=== PATIENT | female | born 1945 | race Caucasian/White ===

== ENCOUNTER 2020-11-12 10:16 | Inpatient (IN) | payer BC, MEDICARE, OTHER ==
[2020-11-12] MEDS ORDERED: Ondansetron 4 MG/2 ML SDV IVPUSH ONE (10:55)
[2020-11-12] MEDS ORDERED: Sodium Chloride 0.9% 1,000 ML IV SCH ×3 (11:00→16:00)
--- NOTE | 2020-11-12 13:00 | CT ---
Abdomen Pelvis wo Cont CLINICAL HISTORY: Vomiting and severe diarrhea COMPARISON: None. TECHNIQUE: Axial tomographic images are obtained from the dome of the diaphragm to the pubic symphysis without IV contrast enhancement. No oral contrast was used. The dosage reduction and iterative reconstruction techniques employed. FINDINGS: The lung bases are clear. The liver shows some diffuse fatty infiltration. There is no mass or biliary dilatation. Gallbladder is mildly distended. The spleen has a normal size and shape. The pancreas shows some mild atrophic change. No mass or inflammatory changes identified. The left adrenal gland contains a fat density nodule consistent with a benign adenolipoma The kidneys show no hydronephrosis. There are multiple small calcifications bilaterally. There is a 12 x 14 mm calcification in the right renal pelvis near the UPJ. The ureters have a normal course and contour. The aorta shows mild atheromatous change without aneurysm.. There is no suspicious retroperitoneal adenopathy. The small intestinal configuration is nonacute. The appendix has normal appearance. There is moderate sigmoid diverticulosis. There is some sigmoid thickening. This may represent some muscular is hypertrophy. There is some questionable mild stranding in the mid perisigmoid fat. IMPRESSION: Sigmoid diverticulosis. Some early diverticulitis is not absolutely excluded. Multiple nonobstructing renal calculi, largest in the right renal pelvis. Fatty infiltration of the liver Mild gallbladder distention Left adrenal adenoma
--- NOTE | 2020-11-12 13:01 | EDM.PDOC ---
ED HPI GENERAL MEDICAL PROBLEM - General Chief Complaint: Gastrointestinal Problem Stated Complaint: EDAMR FOR 17 DAYS Time Seen by Provider: 11/12/20 10:50 Source of Information: Reports: Patient History Limitations: Reports: No Limitations - History of Present Illness INITIAL COMMENTS - FREE TEXT/NARRATIVE: Pt has been having intermittent vomiting and diarrhea. She has been dealing with this since mid oct. Onset: Gradual Duration: Day(s): Location: Reports: Abdomen Associated Symptoms: Reports: Nausea/Vomiting, Other ( diarrhea. ) - Related Data Allergies Allergy/AdvReac Type Severity Reaction Status Date / Time amlodipine Allergy Other Verified 11/12/20 11:19 amoxicillin Allergy Other Verified 11/12/20 11:19 ampicillin Allergy Other Verified 11/12/20 11:19 Penicillins Allergy Other Verified 11/12/20 11:19 Home Meds: Home Meds Cyclobenzaprine [Flexeril] 10 mg PO TID PRN 11/12/20 [History] lisinopriL [Lisinopril] 20 mg PO DAILY 11/12/20 [History] ondansetron HCL [Zofran] 4 mg PO Q8HR 11/12/20 [History] Past Medical History HEENT History: Reports: Impaired Vision Cardiovascular History: Reports: Hypertension Genitourinary History: Reports: Renal Calculus Endocrine/Metabolic History: Reports: Diabetes, Type II - Past Surgical History Female Surgical History: Reports: Other (See Below) Other Female Surgeries/Procedures: kidney stone Other Musculoskeletal Surgeries/Procedures:: arthritis Social & Family History - Tobacco Use Tobacco Use Status *Q: Former Tobacco User Used Tobacco, but Quit: Yes Month/Year Tobacco Last Used: 1989 - Alcohol Use Days Per Week of Alcohol Use: 7 Number of Drinks Per Day: 1 Total Drinks Per Week: 7 - Recreational Drug Use Recreational Drug Use: No ED ROS GENERAL - Review of Systems Review Of Systems: See Below Constitutional: Reports: No Symptoms HEENT: Reports: No Symptoms Respiratory: Reports: No Symptoms Cardiovascular: Reports: No Symptoms Endocrine: Reports: No Symptoms GI/Abdominal: Reports: Diarrhea, Nausea, Vomiting : Reports: No Symptoms Musculoskeletal: Reports: No Symptoms Skin: Reports: No Symptoms ED EXAM, GI/ABD - Physical Exam Exam: See Below Text/Narrative:: pt arrived with a 3 week history of intermittent diarrhea and vomiting. Her renal funtion shows dehydration. Exam Limited By: No Limitations General Appearance: Alert, No Apparent Distress, Anxious, Other (pupils are equal and reactive. ) Ears: Normal TMs Nose: Normal Inspection Throat/Mouth: Normal Inspection Head: Atraumatic Neck: Normal Inspection Respiratory/Chest: No Respiratory Distress Cardiovascular: Regular Rate, Rhythm GI/Abdominal Exam: Soft, Other (no sisg tenderness. ) (Female) Exam: Deferred Rectal (Female) Exam: Deferred Back Exam: Normal Inspection Extremities: Normal Inspection Neurological: Alert, Oriented, Normal Cognition Course - Vital Signs Last Recorded V/S: Last Vital Signs Temp 36.4 C 11/12/20 10:46 Pulse 97 11/12/20 10:46 Resp 20 11/12/20 10:46 BP 153/104 H 11/12/20 10:46 Pulse Ox 96 11/12/20 10:46 - Orders/Labs/Meds Orders: Active Orders 24 hr Category Date Time Status Abdomen Pelvis wo Cont [CT] Stat Exams 11/12/20 11:35 Taken UA W/MICROSCOPIC [URIN] Urgent Lab 11/12/20 10:54 Ordered Sodium Chloride 0.9% [Normal Saline] 1,000 ml Med 11/12/20 11:00 Active IV ASDIRECTED Medication Orders Sodium Chloride (Normal Saline) 1,000 mls @ 999 mls/hr IV ASDIRECTED HARSHAD Last Admin: 11/12/20 11:06 Dose: 999 mls/hr Documented by: LAUREN Labs: Laboratory Tests 11/12/20 11/12/20 11/12/20 Range/Units 11:08 11:08 11:08 WBC 9.5 (4.5-11.0) K/uL RBC 4.96 (3.30-5.50) M/uL Hgb 15.3 H (12.0-15.0) g/dL Hct 46.3 (36.0-48.0) % MCV 93 (80-98) fL MCH 31 (27-31) pg MCHC 33 (32-36) % Plt Count 239 (150-400) K/uL Neut % (Auto) 73 H (36-66) % Lymph % (Auto) 14 L (24-44) % [place] % (Auto) 8 H (2-6) % Eos % (Auto) 5 H (2-4) % Baso % (Auto) 0 (0-1) % Sodium 142 (140-148) mmol/L Potassium 3.6 (3.6-5.2) mmol/L Chloride 106 (100-108) mmol/L Carbon Dioxide 23 (21-32) mmol/L Anion Gap 13.0 (5.0-14.0) mmol/L BUN 31 H (7-18) mg/dL Creatinine 1.7 H (0.6-1.0) mg/dL Est Cr Clr Drug Dosing 23.29 mL/min Estimated GFR (MDRD) 29 L (>60) Glucose 177 H (74-106) mg/dL Calcium 9.0 (8.5-10.1) mg/dL Total Bilirubin 0.5 (0.2-1.0) mg/dL AST 40 H (15-37) U/L ALT 55 (12-78) U/L Alkaline Phosphatase 85 (46-116) U/L C-Reactive Protein 4.38 H (0.0-0.3) mg/dL Total Protein 7.0 (6.4-8.2) g/dL Albumin 3.2 L (3.4-5.0) g/dL Globulin 3.8 H (2.3-3.5) g/dL Albumin/Globulin Ratio 0.8 L (1.2-2.2) Meds: Medications Generic Name Dose Route Start Last Admin Trade Name Freq PRN Reason Stop Dose Admin Sodium Chloride 1,000 mls @ 999 mls/hr 11/12/20 11:00 11/12/20 11:06 Normal Saline IV 999 mls/hr ASDIRECTED HARSHAD Administration Discontinued Medications Generic Name Dose Route Start Last Admin Trade Name Freq PRN Reason Stop Dose Admin Ondansetron HCl 4 mg 11/12/20 10:55 11/12/20 11:10 Zofran IVPUSH 11/12/20 10:56 4 mg ONETIME ONE Administration - Re-Assessments/Exams Free Text/Narrative Re-Assessment/Exam: 11/12/20 12:57 pt has been given 2 liters of fluid. A stool has not been obtaine. Pt appears dry her renal studies are not stable. A cat scan of the abdoman shows possible early diverticulits. Departure - Departure Time of Disposition: 12:56 Disposition: Admitted As Inpatient 64 Condition: Fair Clinical Impression: Renal insufficiency, Dehydration, Diverticulitis - Discharge Information Referrals: Nia Rosenthal MD [Primary Care Provider] - Care Plan Goals: admit to Dr Guerrero Sepsis Event Note (ED) - Evaluation Sepsis Screening Result: No Definite Risk - Focused Exam Vital Signs: Vital Signs Temp Pulse Resp BP Pulse Ox 11/12/20 10:46 36.4 C 97 20 153/104 H 96 - My Orders Last 24 Hours: My Active Orders 11/12/20 10:54 UA W/MICROSCOPIC [URIN] Urgent 11/12/20 11:00 Sodium Chloride 0.9% [Normal Saline] 1,000 ml IV ASDIRECTED 11/12/20 11:35 Abdomen Pelvis wo Cont [CT] Stat - Assessment/Plan Last 24 Hours: My Active Orders 11/12/20 10:54 UA W/MICROSCOPIC [URIN] Urgent 11/12/20 11:00 Sodium Chloride 0.9% [Normal Saline] 1,000 ml IV ASDIRECTED 11/12/20 11:35 Abdomen Pelvis wo Cont [CT] Stat
--- NOTE | 2020-11-12 14:01 | PCM.HP.2 ---
H&P History of Present Illness - General Date of Service: 11/12/20 Admit Problem/Dx: Admission Diagnosis/Problem Admission Diagnosis/Problem Diarrhea Source of Information: Patient, Family, Provider, RN Notes Reviewed History Limitations: Reports: No Limitations - History of Present Illness Initial Comments - Free Text/Narative: Ms. Laureano is a 74-year-old woman who was admitted through the emergency department with progressive weakness secondary to a 3-week history of diarrhea. Symptoms began approximately 3 weeks ago and have been intermittently associated with nausea and vomiting. During the 3-week. She did have one stretch of 4 days without significant diarrhea or vomiting. She estimates that she has had 5-6 stools per day during that period of time that have been entirely liquid without formed elements. Because of the symptoms she has had a very poor zahraa etite with very minimal intake in the past 3 weeks. She has been seen and evaluated in the clinic on 3 separate occasions. She presented to the emergency department because of the persistent diarrhea and progressive weakness. Evaluation in the emergency department shows mild to moderate elevation in CRP with a normal white blood cell count. Vital signs are within desired range and she has been afebrile in the emergency department she denies recent fevers or chills but has had some sweats at home. She denies any sick contacts and has not had recent antibiotic therapy. The skin of the abdomen pelvis shows an area of possible diverticulitis in the sigmoid colon but no other significant ab normalities to explain her recent symptoms. - Related Data Allergies/Adverse Reactions: Allergies Allergy/AdvReac Type Severity Reaction Status Date / Time amlodipine Allergy Other Verified 11/12/20 11:19 amoxicillin Allergy Other Verified 11/12/20 11:19 ampicillin Allergy Other Verified 11/12/20 11:19 Penicillins Allergy Other Verified 11/12/20 11:19 Home Medications: Home Meds Cyclobenzaprine [Flexeril] 10 mg PO TID PRN 11/12/20 [History] lisinopriL [Lisinopril] 20 mg PO DAILY 11/12/20 [History] ondansetron HCL [Zofran] 4 mg PO Q8HR 11/12/20 [History] Past Medical History HEENT History: Reports: Impaired Vision Cardiovascular History: Reports: Hypertension Genitourinary History: Reports: Renal Calculus Endocrine/Metabolic History: Reports: Diabetes, Type II - Past Surgical History Female Surgical History: Reports: Other (See Below) Other Female Surgeries/Procedures: kidney stone Other Musculoskeletal Surgeries/Procedures:: arthritis Social & Family History - Tobacco Use Tobacco Use Status *Q: Former Tobacco User Used Tobacco, but Quit: Yes Month/Year Tobacco Last Used: 1989 - Alcohol Use Days Per Week of Alcohol Use: 7 Number of Drinks Per Day: 1 Total Drinks Per Week: 7 - Recreational Drug Use Recreational Drug Use: No H&P Review of Systems - Review of Systems: Review Of Systems: See Below General: Reports: Weakness, Fatigue, Diaphoresis, Decreased Appetite. Denies: Fever, Chills HEENT: Reports: No Symptoms Pulmonary: Reports: No Symptoms Cardiovascular: Reports: No Symptoms Gastrointestinal: Reports: Diarrhea, Decreased Appetite, Nausea, Vomiting. Denies: Abdominal Pain, Difficulty Swallowing, Distension, Hematemesis, Hematochezia, Melena Genitourinary: Reports: No Symptoms Musculoskeletal: Reports: No Symptoms Skin: Reports: No Symptoms Psychiatric: Reports: No Symptoms Neurological: Reports: No Symptoms Hematologic/Lymphatic: Reports: No Symptoms Immunologic: Reports: No Symptoms Exam - Exam Exam: See Below - Vital Signs Vital Signs: Last Vital Signs Temp 97.5 F 11/12/20 10:46 Pulse 97 11/12/20 10:46 Resp 20 11/12/20 10:46 BP 153/104 H 11/12/20 10:46 Pulse Ox 96 11/12/20 10:46 Weight: 190 lb 0.615 oz - Exam Quality Assessment: DVT Prophylaxis General: Alert, Oriented, Cooperative, Mild Distress HEENT: Conjunctiva Clear, Hearing Intact, Mucosa Moist & [place], Normal Nasal Septum, Posterior Pharynx Clear, Pupils Equal Neck: Supple, Trachea Midline, +2 Carotid Pulse wo Bruit Lungs: Clear to Auscultation, Normal Respiratory Effort Cardiovascular: Regular Rate, Regular Rhythm, Normal S1, Normal S2. No: Systolic Murmur, Diastolic Murmur GI/Abdominal Exam: Soft, Non-Tender, No Organomegaly, No Distention Back Exam: Normal Inspection, Full Range of Motion Extremities: Non-Tender, No Pedal Edema Skin: Warm, Dry, Intact Neurological: Cranial Nerves Intact, Strength Equal Bilateral, Normal Speech, Normal Tone, Sensation Intact. No: Focal Deficit Neuro Extensive - Mental Status: Alert, Oriented x3, Normal Mood/Affect, Normal Cognition, Memory Intact - Patient Data Lab Results Last 24 hrs: Laboratory Results - last 24 hr 11/12/20 11/12/20 11/12/20 Range/Units 11:08 11:08 11:08 WBC 9.5 (4.5-11.0) K/uL RBC 4.96 (3.30-5.50) M/uL Hgb 15.3 H (12.0-15.0) g/dL Hct 46.3 (36.0-48.0) % MCV 93 (80-98) fL MCH 31 (27-31) pg MCHC 33 (32-36) % Plt Count 239 (150-400) K/uL Neut % (Auto) 73 H (36-66) % Lymph % (Auto) 14 L (24-44) % [place] % (Auto) 8 H (2-6) % Eos % (Auto) 5 H (2-4) % Baso % (Auto) 0 (0-1) % Sodium 142 (140-148) mmol/L Potassium 3.6 (3.6-5.2) mmol/L Chloride 106 (100-108) mmol/L Carbon Dioxide 23 (21-32) mmol/L Anion Gap 13.0 (5.0-14.0) mmol/L BUN 31 H (7-18) mg/dL Creatinine 1.7 H (0.6-1.0) mg/dL Est Cr Clr Drug Dosing 23.29 mL/min Estimated GFR (MDRD) 29 L (>60) Glucose 177 H (74-106) mg/dL Calcium 9.0 (8.5-10.1) mg/dL Total Bilirubin 0.5 (0.2-1.0) mg/dL AST 40 H (15-37) U/L ALT 55 (12-78) U/L Alkaline Phosphatase 85 (46-116) U/L C-Reactive Protein 4.38 H (0.0-0.3) mg/dL Total Protein 7.0 (6.4-8.2) g/dL Albumin 3.2 L (3.4-5.0) g/dL Globulin 3.8 H (2.3-3.5) g/dL Albumin/Globulin Ratio 0.8 L (1.2-2.2) Result Diagrams: 11/12/20 11:08 11/12/20 11:08 Sepsis Event Note - Evaluation Sepsis Screening Result: No Definite Risk - Focused Exam Vital Signs: Vital Signs Temp Pulse Resp BP Pulse Ox 11/12/20 10:46 97.5 F 97 20 153/104 H 96 *Q Meaningful Use (ADM) - VTE *Q VTE Pharmacological Contraindications *Q: Patient Scheduled Surgery - VTE Risk Assess *Q Each Risk Factor Represents 1 Point: Obesity ( BMI > 25 kg/m2) Total Score 1 Point Risk Factors: 1 Each Risk Factor Represents 2 Points: None Total Score 2 Point Risk Factors: 0 Each Risk Factor Represents 3 Points: Age 75 Years or Greater Total Score 3 Point Risk Factors: 3 Each Risk Factor Represents 5 Points: None Total Score 5 Point Risk Factors: 0 Venous Thromboembolism Risk Factor Score *Q: 4 Problem List Initiated/Reviewed/Updated: Yes Orders Last 24hrs: Active Orders 24 hr Category Date Time Status Patient Status Manage Transfer [TRANSFER] Routine ADT 11/12/20 13:41 Ordered Clostridium [CLOS DIFFICILE PCR W/REFLEX] [RM] Stat Lab 11/12/20 13:12 Ordered UA W/MICROSCOPIC [URIN] Urgent Lab 11/12/20 10:54 Ordered Sodium Chloride 0.9% [Normal Saline] 1,000 ml Med 11/12/20 11:00 Active IV ASDIRECTED Resuscitation Status Routine Resus Stat 11/12/20 13:42 Ordered Medication Orders Sodium Chloride (Normal Saline) 1,000 mls @ 999 mls/hr IV ASDIRECTED HARSHAD Last Admin: 11/12/20 11:06 Dose: 999 mls/hr Documented by: LAUREN Assessment/Plan Comment:: ASSESSMENT AND PLAN DIARRHEA-associated with intermittent nausea and vomiting. Question of possible sigmoid diverticulitis noted on CT scan. History of 5-6 very loose stools daily, 17 out of the last 21 days. -Stool for culture, WBC, and C. difficile -IV fluids for hydration -Colonoscopy prep -Consult Dr. Gonzales for colonoscopy in a.m. -IV ciprofloxacin and Flagyl, pending further evaluation DEHYDRATION-secondary to diarrhea with poor oral intake and intermittent nausea and vomiting -IV fluids as above ACUTE KIDNEY INJURY-secondary to dehydration and intravascular volume depletion -Reassess kidney function in a.m. following hydration -Closely monitor urine output HYPERTENSION -Hold lisinopril -Monitor blood pressures during hospital stay MAINTENANCE ISSUES -DVT prophylaxis; SCUDs, hold on anticoagulation because of pending colonoscopy -GI prophylaxis; not indicated -Strange catheter; not indicated -Nutrition; clear liquid diet, n.p.o. after midnight -Nicotine dependence; not required CODE STATUS-full code THAT ADMISSION STATUS-patient will be admitted to inpatient status, expect at least a 2 night hospital stay for evaluation and management of problems as outlined above. At the time of this admission I do not reasonably expected evaluation and management of this problem will require more than a 96 hour hospital stay. DISPOSITION-anticipate discharge to home after the hospital stay. PRIMARY CARE PROVIDER-Dr. Rosenthal - Mortality Measure Prognosis:: Good
[2020-11-12] MEDS ORDERED: Ondansetron 4 MG/2 ML SDV IV PRN (15:34)
[2020-11-12] MEDS ORDERED: Cyclobenzaprine 10 MG Tab PO PRN (15:34)
[2020-11-12] MEDS ORDERED: Acetaminophen 325 MG Tab PO PRN (15:34)
[2020-11-12] MEDS ORDERED: Sodium Chloride 0.9% 10 ML Syringe FLUSH PRN (15:34)
[2020-11-12] MEDS ORDERED: Bisacodyl 5 MG Tab PO ONE ×2 (15:45→20:00)
[2020-11-12] MEDS ORDERED: Polyethylene Glycol 3350 Powder 238 GM Bot PO ONE (17:00)
[2020-11-12] MEDS: metroNIDAZOLE/Normal Saline 500 MG in Premix Bag 1 BAG IV SCH ×2 (17:48→23:05)
[2020-11-12] MEDS: Ciprofloxacin in D5W 400 MG in Premix Bag 1 BAG IV SCH ×2 (19:29)
[2020-11-13] MEDS: Ciprofloxacin in D5W 400 MG in Premix Bag 1 BAG IV SCH ×2 (05:30)
[2020-11-13] MEDS ORDERED: fentaNYL 100 MCG/2 ML SDV ONE (07:21)
[2020-11-13] MEDS ORDERED: Propofol 200 MG/20 ML SDV ONE ×2 (07:21→08:12)
[2020-11-13 07:34] LABS: CORONAVIRUS COVID-19 NAA NEGATIVE (NEGATIVE)
[2020-11-13] MEDS: metroNIDAZOLE/Normal Saline 500 MG in Premix Bag 1 BAG IV SCH (09:01)
[2020-11-13] MEDS ORDERED: Potassium Chloride 20 MEQ Tab.ER PO ONE (10:00)
[2020-11-13] MEDS ORDERED: Magnesium Sulfate/Water 2 GM/50 ML BAG IV ONE (10:30)
--- NOTE | 2020-11-13 12:41 | PCM.DCSUM1 ---
Discharge Summary - Hospital Course Brief History: Ms. Laureano is a 74 year-old female admitted on 11/12 with a 3-week history of diarrhea and acute kidney injury - Discharge Data Discharge Date: 11/13/20 Discharge Disposition: Home, Self-Care 01 Condition: Good - Referral to Home Health Primary Care Physician: Nia Rosenthal MD - Discharge Diagnosis/Problem(s) (1) Diarrhea SNOMED Code(s): 15472759 ICD Code: R19.7 - DIARRHEA, UNSPECIFIED Status: Acute Priority: Medium Current Visit: Yes Qualifiers: Diarrhea type: unspecified type Qualified Code(s): R19.7 - Diarrhea, u nspecified (2) Acute kidney injury SNOMED Code(s): 23780873, 88133927 ICD Code: N17.9 - ACUTE KIDNEY FAILURE, UNSPECIFIED Status: Acute Priority: Medium Current Visit: Yes Onset Date: ~11/12/20 (3) Dehydration SNOMED Code(s): 63321200 ICD Code: E86.0 - DEHYDRATION Status: Acute Priority: Medium Current Visit: Yes Onset Date: ~11/12/20 (4) Hypokalemia SNOMED Code(s): 28479820 ICD Code: E87.6 - HYPOKALEMIA Status: Acute Priority: Medium Current Visit: Yes Onset Date: ~11/13/20 (5) Hypomagnesemia SNOMED Code(s): 583492544 ICD Code: E83.42 - HYPOMAGNESEMIA Status: Acute Priority: Low Current Visit: Yes Onset Date: ~11/13/20 - Patient Summary/Data Operative Procedure(s) Performed: Colonoscopy Complications: None Consults: Consultations 11/12/20 15:34 Consult to Physician [CONS] Routine Consulting Provider: Francesco Gonzales Call Completed to Consulting Physician: Yes Reason for Consult: Diarrhea of 3 weeks duration colonoscopy in a.m. Recommended Follow-up Testing/Procedures: Potassium, Magnesium Hospital Course: 74 year-old female admitted on 11/12 with a 3-week history of diarrhea and acute kidney injury. Admission CT suggested possible diverticulitis so the patient was placed on IV ciprofloxacin and flagyl. She received IV fluids with resolution of her acute kidney injury on the morning of hospital day 2, though she was noted to have moderate hypokalemia and hypomagnesemia. She had a colonoscopy on 11/13 that did not show any inflammatory changes or other significant abnormalities of the colon outside of some mild diverticulosis - no diverticulitis identified. Following her procedure, the patient had her diet advanced to a soft mechanical diet with oral potassium supplementation which she tolerated. She received IV magnesium replacement. Later in the day, the patient improved faster than initially suspected, and requested discharge home. She was discharged in stable condition with recommendations to follow-up with her PCP in 3-5 days. She was prescribed several additional days of oral potassium supplement and should have her K/Mg reassessed at outpatient follow- up. She was advised to stick to bland foods until her diarrhea continues to improve/resolve. She was instructed to continue work-up as an outpatient and consider immodium as well as continue zofran as needed for symptoms. - Patient Instructions Diet: Regular Diet as Tolerated Activity: As Tolerated Notify Provider of: Fever, Increased Pain, Nausea and/or Vomiting - Discharge Plan *PRESCRIPTION DRUG MONITORING PROGRAM REVIEWED*: Not Applicable *COPY OF PRESCRIPTION DRUG MONITORING REPORT IN PATIENT VLAD: Not Applicable Home Medications: Home Meds Cyclobenzaprine [Flexeril] 10 mg PO TID PRN 11/12/20 [History] lisinopriL [Lisinopril] 20 mg PO DAILY 11/12/20 [History] ondansetron HCL [Zofran] 4 mg PO Q8HR 11/12/20 [History] Oxygen Therapy Mode: Room Air Patient Handouts: High-Fiber Diet, Colonoscopy, Adult, Care After Referrals: Nia Rosenthal MD [Primary Care Provider] - 11/16/20 1:30 pm (Please arrive at 1:00 to have labs drawn prior to your appointment. You will need a potassium and Magnesium drawn. ) - Discharge Summary/Plan Comment DC Time >30 min.: Yes (33 minutes) - Patient Data Vitals - Most Recent: Last Vital Signs Temp 96.1 F L 11/13/20 10:30 Pulse 61 11/13/20 10:30 Resp 14 11/13/20 10:30 BP 144/65 H 11/13/20 10:30 Pulse Ox 97 11/13/20 10:30 Weight - Most Recent: 194 lb 7.163 oz I&O - Last 24 hours: Intake & Output 11/12/20 11/13/20 11/13/20 22:59 06:59 14:59 Intake Total 500 50 Balance 500 50 Lab Results - Last 24 hrs: Laboratory Results - last 24 hr 11/12/20 11/13/20 11/13/20 Range/Units 15:11 05:00 05:11 WBC 8.1 (4.5-11.0) K/uL RBC 3.77 (3.30-5.50) M/uL Hgb 11.6 L D (12.0-15.0) g/dL Hct 35.6 L (36.0-48.0) % MCV 94 (80-98) fL MCH 31 (27-31) pg MCHC 33 (32-36) % Plt Count 174 (150-400) K/uL Neut % (Auto) 64 (36-66) % Lymph % (Auto) 16 L (24-44) % [place] % (Auto) 10 H (2-6) % Eos % (Auto) 9 H (2-4) % Baso % (Auto) 0 (0-1) % Sodium (140-148) mmol/L Potassium (3.6-5.2) mmol/L Chloride (100-108) mmol/L Carbon Dioxide (21-32) mmol/L Anion Gap (5.0-14.0) mmol/L BUN (7-18) mg/dL Creatinine (0.6-1.0) mg/dL Est Cr Clr Drug Dosing mL/min Estimated GFR (MDRD) (>60) Glucose (74-106) mg/dL Calcium (8.5-10.1) mg/dL Magnesium (1.8-2.4) mg/dL Urine Color Yellow (YELLOW) Urine Appearance Cloudy A (CLEAR) Urine pH 5.5 (5.0-8.0) Ur Specific [place] 1.025 (1.008-1.030) Urine Protein 100 H (NEGATIVE) mg/dL Urine Glucose (UA) Negative (NEGATIVE) mg/dL Urine Ketones Negative (NEGATIVE) mg/dL Urine Occult Blood Moderate H (NEGATIVE) Urine Nitrite Negative (NEGATIVE) Urine Bilirubin Small H (NEGATIVE) Urine Urobilinogen 0.2 (0.2-1.0) EU/dL Ur Leukocyte Esterase Trace H (NEGATIVE) Urine RBC 30-40 H (0-5) Urine WBC Not seen (0-5) Ur Epithelial Cells Rare Amorphous Sediment Not seen Urine Bacteria Few Urine Mucus Moderate Influenza Type A RNA Negative (NEGATIVE) RSV RNA (INAAT) Negative (NEGATIVE) Influenza Type B RNA Negative (NEGATIVE) SARS-CoV-2 RNA (BER[place]ARDO) Negative (NEGATIVE) 11/13/20 Range/Units 05:11 WBC (4.5-11.0) K/uL RBC (3.30-5.50) M/uL Hgb (12.0-15.0) g/dL Hct (36.0-48.0) % MCV (80-98) fL MCH (27-31) pg MCHC (32-36) % Plt Count (150-400) K/uL Neut % (Auto) (36-66) % Lymph % (Auto) (24-44) % [place] % (Auto) (2-6) % Eos % (Auto) (2-4) % Baso % (Auto) (0-1) % Sodium 145 (140-148) mmol/L Potassium 3.0 L (3.6-5.2) mmol/L Chloride 111 H (100-108) mmol/L Carbon Dioxide 21 (21-32) mmol/L Anion Gap 16.0 H (5.0-14.0) mmol/L BUN 19 H (7-18) mg/dL Creatinine 1.0 (0.6-1.0) mg/dL Est Cr Clr Drug Dosing 39.58 mL/min Estimated GFR (MDRD) 54 L (>60) Glucose 102 (74-106) mg/dL Calcium 7.8 L (8.5-10.1) mg/dL Magnesium 1.5 L (1.8-2.4) mg/dL Urine Color (YELLOW) Urine Appearance (CLEAR) Urine pH (5.0-8.0) Ur Specific [place] (1.008-1.030) Urine Protein (NEGATIVE) mg/dL Urine Glucose (UA) (NEGATIVE) mg/dL Urine Ketones (NEGATIVE) mg/dL Urine Occult Blood (NEGATIVE) Urine Nitrite (NEGATIVE) Urine Bilirubin (NEGATIVE) Urine Urobilinogen (0.2-1.0) EU/dL Ur Leukocyte Esterase (NEGATIVE) Urine RBC (0-5) Urine WBC (0-5) Ur Epithelial Cells Amorphous Sediment Urine Bacteria Urine Mucus Influenza Type A RNA (NEGATIVE) RSV RNA (INAAT) (NEGATIVE) Influenza Type B RNA (NEGATIVE) SARS-CoV-2 RNA ([place]) (NEGATIVE) VICENTE Results - Last 24 hrs: Microbiology 11/12/20 21:15 Clostridioides difficile (PCR) - Final Stool / Feces 11/12/20 21:00 Stool for WBCs - Final Stool / Feces NO WBC SEEN REFERENCE RANGE: NO WBC SEEN Med Orders - Current: Current Medications Acetaminophen (Tylenol) 650 mg PO Q4H PRN PRN Reason: Pain (Mild 1-3)/fever Cyclobenzaprine HCl (Flexeril) 10 mg PO TID PRN PRN Reason: Pain Sodium Chloride (Normal Saline) 1,000 mls @ 125 mls/hr IV ASDIRECTED [facility] Last Admin: 11/12/20 16:19 Dose: 125 mls/hr Documented by: Ondansetron HCl (Zofran) 4 mg IV Q4H PRN PRN Reason: Nausea/Vomiting Sodium Chloride (Saline Flush) 10 ml FLUSH ASDIRECTED PRN PRN Reason: Keep Vein Open Discontinued Medications Bisacodyl (Dulcolax) 10 mg PO ONETIME ONE Stop: 11/12/20 15:46 Last Admin: 11/12/20 19:33 Dose: 10 mg Documented by: Bisacodyl (Dulcolax) 10 mg PO ONETIME ONE Stop: 11/12/20 20:01 Last Admin: 11/12/20 23:10 Dose: Not Given Documented by: Fentanyl (Fentanyl 100 Mcg/2 Ml Sdv) Confirm Administered Dose 100 mcg .ROUTE .STK-MED ONE Stop: 11/13/20 07:22 Sodium Chloride (Normal Saline) 1,000 mls @ 999 mls/hr IV ASDIRECTED [facility] Last Admin: 11/12/20 11:06 Dose: 999 mls/hr Documented by: Sodium Chloride (Normal Saline) 1,000 mls @ 999 mls/hr IV ASDIRECTED [facility] Stop: 11/12/20 16:00 Last Admin: 11/12/20 15:11 Dose: 999 mls/hr Documented by: Ciprofloxacin/Dextrose 400 mg/ (Premix) 200 mls @ 200 mls/hr IV Q12H [facility] Last Admin: 11/13/20 05:30 Dose: 200 mls/hr Documented by: Metronidazole 500 mg/ Premix 100 mls @ 100 mls/hr IV Q8H [facility] Last Admin: 11/13/20 09:01 Dose: 100 mls/hr Documented by: Magnesium Sulfate (Magnesium Sulfate In Water 2 Gm/50 Ml) 2 gm in 50 mls @ 25 mls/hr IV ONETIME ONE Stop: 11/13/20 12:29 Last Admin: 11/13/20 10:48 Dose: 25 mls/hr Documented by: Ondansetron HCl (Zofran) 4 mg IVPUSH ONETIME ONE Stop: 11/12/20 10:56 Last Admin: 11/12/20 11:10 Dose: 4 mg Documented by: Polyethylene Glycol (Miralax) 238 gm PO ONETIME ONE Stop: 11/12/20 17:01 Last Admin: 11/12/20 19:34 Dose: 238 gm Documented by: Potassium Chloride (Potassium Chloride 20 Meq Tab.Er) 40 meq PO ONETIME ONE Stop: 11/13/20 10:01 Last Admin: 11/13/20 10:54 Dose: 40 meq Documented by: Propofol (Propofol 200 Mg/20 Ml Sdv) Confirm Administered Dose 200 mg .ROUTE .STK-MED ONE Stop: 11/13/20 07:22 Propofol (Propofol 200 Mg/20 Ml Sdv) Confirm Administered Dose 200 mg .ROUTE .STK-MED ONE Stop: 11/13/20 08:13 *Q Meaningful Use (DIS) - VTE *Q VTE Pharmacological Contraindications *Q: Patient Scheduled Surgery
--- NOTE | 2020-11-13 20:31 | OR ---
DATE OF PROCEDURE: 11/13/2020 SURGEON: Francesco Gonzales MD PROCEDURE: Colonoscopy. FINDINGS: 1. Very tortuous colon. 2. Diverticulosis, mild, throughout entire colon. 3. Marginal colon prep. 4. No gross abnormalities. COMPLICATIONS: None. TRIMMER [employer]ATOR THREE KNIFE: None. ANESTHESIA: MAC. PREOPERATIVE DIAGNOSIS: Diarrhea. POSTOPERATIVE DIAGNOSIS: Diarrhea. RISKS: Risks, benefits, alternatives, and limitations including, but not limited to infection, bleeding, perforation, false positives, false negatives were all explained to the patient who wished to proceed. PROCEDURE IN DETAIL: The patient was placed in left lateral decubitus position. Digital rectal exam was performed without abnormality. Scope was introduced and advanced atraumatically to the ileocecal valve. A photo was taken of this. Scope was brought back to the ascending, transverse, descending colon, and retroflexed. The prep was marginal with approximately 80% of the luminal surface could be seen. Diverticulosis described as moderate. No evidence of diverticulitis or bleeding. No colitis. No abnormalities on retroflexion. The colon described as very tortuous. At no point was the scope blindly advanced. Greater than 8 minutes was spent removing the scope. The patient tolerated the procedure well. Francesco Gonzales MD /[id number]
== END 2020-11-13 13:55 | disposition home or self-care (01) | DRG 684 ==
LOC: JP.ED 10:16 → JP.ICU 13:41 → JP.MS 19:05
PROVIDERS: ADMIT Hospitalist; ATTEND Hospitalist
PROC: 0DJD8ZZ Inspection of Lower Intestinal Tract, Via Natural or Artificial Opening Endoscopic (ICD-10-PCS; principal; 2020-11-13)
DX: K57.92 Diverticulitis of intestine, part unspecified, without perforation or abscess without bleeding (principal); N28.9 Disorder of kidney and ureter, unspecified; N17.9 Acute kidney failure, unspecified; R19.7 Diarrhea, unspecified; E86.0 Dehydration; E87.6 Hypokalemia; E83.42 Hypomagnesemia; K57.30 Diverticulosis of large intestine without perforation or abscess without bleeding; Z79.899 Other long term (current) drug therapy; Z88.1 Allergy status to other antibiotic agents; Z88.0 Allergy status to penicillin; Z88.8 Allergy status to other drugs, medicaments and biological substances; Z20.822 Contact with and (suspected) exposure to COVID-19; H54.7 Unspecified visual loss; I10 Essential (primary) hypertension; Z87.442 Personal history of urinary calculi; E11.9 Type 2 diabetes mellitus without complications; M19.90 Unspecified osteoarthritis, unspecified site; Z87.891 Personal history of nicotine dependence
CPT/HCPCS: 0241U; 36415; 74176; 80048; 80053; 81001; 83735; 85025; 86140; 87046; 87493; 87899; 89055; 96361; 96374; 99285; 99285-25; A9270-GY; J0744; J2405; J2704; J3010; J3475; J3490; J7030

== ENCOUNTER 2024-12-29 07:44 | Day surgery (SDC) | payer MEDICARE ==
[2024-12-29] MEDS: Sodium Chloride 0.9% 10 ML Syringe FLUSH PRN (08:51)
== END 2024-12-29 09:45 | disposition home or self-care (01) ==
LOC: JP.SDS 07:44
PROVIDERS: ATTEND Ophthalmology
DX: H26.9 Unspecified cataract (principal); Z53.8 Procedure and treatment not carried out for other reasons

== ENCOUNTER 2025-01-26 06:39 | Day surgery (SDC) | payer MEDICARE ==
[2025-01-26] MEDS: Sodium Chloride 0.9% 10 ML Syringe FLUSH PRN (07:21)
[2025-01-26] MEDS ORDERED: Midazolam 1 MG/ML 2 ML SDV ONE (08:14)
[2025-01-26] MEDS ORDERED: Sodium Chloride 0.9% 10 ML ONE (08:15)
== END 2025-01-26 08:51 | disposition home or self-care (01) ==
LOC: JP.SDS 06:39
PROVIDERS: ATTEND Ophthalmology
DX: H25.11 Age-related nuclear cataract, right eye (principal); I10 Essential (primary) hypertension
CPT/HCPCS: 66984; J2250; 00142-QZ; V2632

== ENCOUNTER 2025-02-16 07:32 | Day surgery (SDC) | payer MEDICARE ==
[2025-02-16] MEDS: Sodium Chloride 0.9% 10 ML Syringe FLUSH ONE (08:21)
[2025-02-16] MEDS ORDERED: Midazolam 1 MG/ML 2 ML SDV ONE (08:55)
== END 2025-02-16 09:40 | disposition home or self-care (01) ==
LOC: JP.SDS 07:32
PROVIDERS: ATTEND Ophthalmology
DX: H25.12 Age-related nuclear cataract, left eye (principal); I10 Essential (primary) hypertension; E66.9 Obesity, unspecified
CPT/HCPCS: 66984; J2250; V2632

== ENCOUNTER 2025-05-14 19:06 | Emergency (ER) | payer MEDICARE ==
[2025-05-14] MEDS: Lidocaine 1% with EPINEPHrine 1:100,000 50 ML MDV SUBCUT STA (20:35)
== END 2025-05-14 21:09 | disposition home or self-care (01) ==
LOC: JP.ED 19:06
DX: S01.01XA Laceration without foreign body of scalp, initial encounter (principal); I10 Essential (primary) hypertension; Z88.0 Allergy status to penicillin; Z88.8 Allergy status to other drugs, medicaments and biological substances; W01.198A Fall on same level from slipping, tripping and stumbling with subsequent striking against other object, initial encounter
CPT/HCPCS: 12002; 70450; 99283